=== PATIENT | female | born 1965 | race Two or more races ===

== ENCOUNTER → 2019-07-31 | Emergency (ER) | payer OTHER ==
[~2019-07-31] VITALS: Ht 152.4 cm; Wt 95.7 kg
[~2019-07-31] MED LIST: LORAZEPAM 1 MG TABLET ONE; LORAZEPAM 1 MG TABLET PO ONE
--- NOTE | 2019-07-31 13:08 | NUR ---
PA AT BEDSIDE. PT CRYING.
--- NOTE | 2019-07-31 13:09 | NUR ---
PT ASKED TO BE SEEN LATER. PLACED ON A MONITOR. WILL CONITNUE TO MONITOR FOR SAFETY.
--- NOTE | 2019-07-31 13:39 | NUR ---
CALLED GRIT REMOVAL OPERATOR
--- NOTE | 2019-07-31 14:27 | NUR ---
PT AWAKE AND ORIENTED. PT BEING ABLE TO AMBULATE IN THE BATHROOM.
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
[2019-07-31 16:13] VITALS: BP 126/84
--- NOTE | 2019-07-31 16:15 | NUR ---
Patient discharged to home in stable condition. Written and verbal after care instructions given. Patient verbalizes understanding of instruction. Indian interpretater at bedside.
== END | disposition home or self-care (01) ==
LOC: ER 12:54
DX: F43.22 Adjustment disorder with anxiety (principal); E66.01 Morbid (severe) obesity due to excess calories; Z68.41 Body mass index [BMI] 40.0-44.9, adult